=== PATIENT | male | born 1980 | race African-American/Black ===

== ENCOUNTER 2016-12-19 13:47 | Emergency (ER) | payer MEDICAID ==
[~2016-12-19] VITALS: Ht 190.5 cm; Wt 83.9 kg
[2016-12-19 14:39] VITALS: BP 150/92
== END 2016-12-19 16:07 | disposition home or self-care (01) ==
LOC: ER 13:47
DX: S90.121A Contusion of right lesser toe(s) without damage to nail, initial encounter (principal); W22.8XXA Striking against or struck by other objects, initial encounter; Y93.89 Activity, other specified; Y99.8 Other external cause status; Y92.89 Other specified places as the place of occurrence of the external cause
CPT/HCPCS: 73630; 99284; L3260